=== PATIENT | female | born 1985 | race Caucasian/White ===

== ENCOUNTER → 2018-01-02 08:50 | Outpatient (POV) | payer MEDICAID, SELFPAY | PROVIDERS: PCP Physician Assistant; Visit Provider Specialist | DX: G56.02 Carpal tunnel syndrome, left upper limb (principal); R20.2 Paresthesia of skin | CPT/HCPCS: 95886; 95908 ==

== ENCOUNTER → 2018-04-06 13:08 | Outpatient (CLI) | payer MEDICAID, SELFPAY ==
--- NOTE | 2018-04-06 13:31 | US_ITS ---
US transvaginal HISTORY: Follow-up ovarian cyst ITS.REASON: check rt ovary ORDERING PHYSICIAN: Charity Vasques MD PATIENT AGE: 33 years Comparison: 02/20/2018 FINDINGS: The uterus measures 7 x 3 x 4 cm with a combined endometrial thickness of 7 mm. There is multilocular cystic involvement of the right ovary which is slightly more prominent when compared to the previous study measuring approximately 15 x 6 cm previously measured at 11 x 7 cm. There may be be some minimal mural nodularity along the inferior aspect of the lesion measuring approximately 2 cm. This however is questionable. There may be some nodularity along the superior pole of the cystic lesion is well. MRI of the pelvis without and with contrast may be of further value. The left ovary measures 3.5 x 2 x 2 cm containing multiple small follicles. No cul-de-sac fluid is evident. IMPRESSION: Large cystic right adnexal mass as described above which is slightly larger compared to the previous exam with some internal septations and questionable mural nodularity. Consider MRI for further evaluation. Neoplasm cannot be excluded.
[2018-04-06 15:09] LABS: Basophils % 0.4 % (0.1-2.0); Eosinophils # 0.2 K/mm3 (0.0-0.4); Eosinophils % 2.4 % (0.1-12.0); Hematocrit 47.6 % (37.0-47.0); Hemoglobin 15.1 g/dL (12.2-16.2); Lymphocytes # 2.6 K/mm3 (0.7-4.5); Lymphocytes % 36.8 K/mm3 (10-50); Mean Corpuscular HGB Conc 31.7 g/dL (31.8-35.4); Mean Corpuscular Hemoglobin 29.7 pg (27.0-31.2); Mean Corpuscular Volume 93.6 fl (81-99); Mean Platelet Volume 7.5 fl (7.4-10.4); Monocytes # 0.2 K/mm3 (0.1-1.0); Monocytes % 3.1 % (1.7-9.3); Neutrophils # 4.1 K/mm3 (1.8-7.8); Neutrophils % 57.3 % (37.0-80.0); Platelet Count 288 K/mm3 (142-424); Red Blood Count 5.08 M/mm3 (4.20-5.40); Red Cell Distribution Width 13.1 % (11.5-17.5); White Blood Count 7.1 K/mm3 (4.8-10.8)
[2018-04-06 16:24] LABS: Alanine Aminotransferase 33 U/L (12-78); Albumin/Globulin Ratio 0.9 (1.1-1.8); Alkaline Phosphatase 91 U/L (46-116); Anion Gap 11.3 mEq/L (5-15); Aspartate Amino Transferase 23 U/L (15-37); Bilirubin,Total 0.2 mg/dL (0.2-1.0); Blood Urea Nitrogen 10 mg/dL (7-18); Calcium 9.2 mg/dL (8.5-10.1); Carbon Dioxide 27 mmol/L (21.0-32.0); Chloride 103 mmol/L (98-107); Creatinine,Serum 0.97 mg/dL (0.55-1.02); Estimated Glomerular Filt Rate 66 ml/min (>60); GFR (African American) 80 ML/MIN (>60); Globulin 4.3 gm/dl (1.3-3.2); Glucose 88 mg/dL (74-106); HCG,Quantitative 0 mIU/mL; Potassium 4.3 mmoL/L (3.5-5.1); Sodium 137 mmol/L (136-145); T4 (Thyroxine) 8.3 ug/dl (4.7-13.3); Thyroid Stimulating Hormone 3.08 uIU/ml (0.358-3.740); Total Protein,Serum 8.3 gm/dL (6.4-8.2)
[2018-04-09 01:09] LABS: CEA 1.5 ng/mL (0.0-4.7); Cancer Antigen (CA) 125 17.9 U/mL (0.0-38.1); FSH 6.6 mIU/mL (.); LH 11.2 mIU/mL (.); Triiodothyronine (T3) Total 153 ng/dL (71-180)
== END ==
PROVIDERS: PCP Physician Assistant; Visit Provider Obstetrics & Gynecology
DX: R10.2 Pelvic and perineal pain (principal); N83.201 Unspecified ovarian cyst, right side
CPT/HCPCS: 36415; 76830; 80053; 82378; 83001; 83002; 84436; 84443; 84480; 84702; 85025; 86316

== ENCOUNTER → 2018-04-12 14:03 | Outpatient (CLI) | payer MEDICAID, SELFPAY ==
--- NOTE | 2018-04-12 14:13 | MR_ITS ---
MR pelvis wo/w con Ordering Physician: Charity Vsaques MD Patient Age: 33 years: Female HISTORY: ITS.REASON: abdominal/pelvic pain with right adnexal mass TECHNIQUE: Multiplanar multisequence precontrast imaging. Of the pelvis only. Images do extend above the iliac crest within the lowermost abdomen just below the kidneys. . Following ProHance 20 mL T1 fat suppression imaging all 3 planes performed. COMPARISON :CT abdomen pelvis 02/12/2018 Ultrasound pelvis studies from 02/12/2018 and 04/06/2018. FINDINGS We again see the large multilocular cystic mass arising from the right adnexa. It now has a more horizontal, transverse appearance and orientation than it did on previous CT. From ,, extending horizontal fashion to midline & then draping down towards the right adnexa Today's MR this multi locular cystic mass measures 14.6 cm transverse x 8 cm height x 6 cm AP.. [place] are fairly thin and smooth with only minimal enhancement-enhancement comparable to enhancement bowel wall and other structures. Does not appear unusual prominent nor pathologic. Again with smooth reno. No discrete mural nodules or prominent focal wall thickening. .. There are a few septations dividing major portions multilocular cystic feature.. Some of the vertical septations are perhaps very very slightly thickened for example towards the right aspect of this mass, but the septations remains fairly smooth. Again at reviewing all sequences I see no discrete enhancing mural nodules,. .. Fairly homogeneous fluid signal within it. Favor this is more likely a benign cystadenoma, but cannot exclude a adenocarcinoma totally. . Mucinous cystadenomas tend have loculation and thus it may indeed be homogeneous mucinous cystadenoma rather than serous .. There is no free fluid.. No pelvic adenopathy. The scan includes the lower abdomen just above the iliac crest. These images reveal no enhancing lesions elsewhere to suggest peritoneal disease. The uterus appears satisfactory with moderate endometrial stripe. Left ovary nicely imaged and identified. Appears normal. Normal size with scattered small follicles. Normal character. It measures up to 3.3 cm height 3.2 cm x 2.2 . cm No osseous lesions. There is a disc bulge with moderate central disc bulge at L4/5 that indents the thecal sac slightly narrowing the spinal canal. IMPRESSION------ 1. Large multilocular cystic mass arising from right adnexa. It measures up to 14.6 cm maximum length x 8 cm x 6 cm (It has rotated somewhat since January 2018 with now a more horizontal orientation than on On previous CT had a more oblique vertical orientation to the right adnexa.) Overall the reno fairly thin & smooth.. Several septations within this multiloculated cystic mass are noted & are perhaps very very slight thicker at the margins (relative to the reno), but overall the septations appears smooth and still relatively thin.. No mural nodule or mass evident. No abnormal focal areas of enhancement . Favor more likely Benign Cystadenoma with its overall appearance but by criteria there is some borderline features including the multilocular appearance and the scant enhancement of the wall. - Thus cannot exclude adenocarcinoma, but believe this less likely. 2. No pelvic adenopathy. No free fluid No peritoneal disease evident here at the pelvis and imaged lower most abdomen.. . Normal-appearing left ovary.. & Uterus unremarkable 3. Incidental moderate central disc bulge L4/5
== END ==
PROVIDERS: PCP Physician Assistant; Visit Provider Obstetrics & Gynecology
DX: N94.9 Unspecified condition associated with female genital organs and menstrual cycle (principal); R10.2 Pelvic and perineal pain; R10.9 Unspecified abdominal pain; D27.0 Benign neoplasm of right ovary
CPT/HCPCS: 72197; A9576

== ENCOUNTER → 2018-05-20 11:28 | Outpatient (CLI) | payer MEDICAID, SELFPAY ==
[2018-05-20 12:20] LABS: Basophils % 0.2 % (0.1-2.0); Eosinophils # 0.1 K/mm3 (0.0-0.4); Eosinophils % 0.9 % (0.1-12.0); Hematocrit 42.1 % (37.0-47.0); Lymphocytes # 1.8 K/mm3 (0.7-4.5); Lymphocytes % 25.4 K/mm3 (10-50); Mean Corpuscular HGB Conc 33.3 g/dL (31.8-35.4); Mean Corpuscular Hemoglobin 31.3 pg (27.0-31.2); Mean Platelet Volume 7.5 fl (7.4-10.4); Monocytes # 0.3 K/mm3 (0.1-1.0); Monocytes % 4.1 % (1.7-9.3); Neutrophils # 4.8 K/mm3 (1.8-7.8); Neutrophils % 69.3 % (37.0-80.0); Platelet Count 272 K/mm3 (142-424); Red Blood Count 4.48 M/mm3 (4.20-5.40); Red Cell Distribution Width 12.9 % (11.5-17.5); White Blood Count 6.9 K/mm3 (4.8-10.8)
[2018-05-20 12:42] LABS: Urine Pregnancy, HCG Qual. Negative (Negative)
== END ==
PROVIDERS: PCP Obstetrics & Gynecology; Visit Provider Obstetrics & Gynecology
DX: Z01.818 Encounter for other preprocedural examination (principal)
CPT/HCPCS: 36415; 81025; 85025; 86850

== ENCOUNTER → 2020-07-17 15:06 | Outpatient (CLI) | payer MEDICAID, SELFPAY ==
[2020-07-17 15:29] LABS: Basophils % 0.4 % (0.1-2.0); Eosinophils # 0.1 K/mm3 (0.0-0.4); Eosinophils % 1.5 % (0.1-12.0); Hematocrit 46.3 % (37.0-47.0); Lymphocytes % 32.2 % (10-50); Mean Corpuscular HGB Conc 32.4 g/dL (31.8-35.4); Mean Corpuscular Hemoglobin 31.3 pg (27.0-31.2); Mean Corpuscular Volume 96.6 fl (81-99); Mean Platelet Volume 8.8 fl (7.4-10.4); Monocytes # 0.3 K/mm3 (0.1-1.0); Monocytes % 5.7 % (1.7-9.3); Neutrophils # 3.7 K/mm3 (1.8-7.8); Neutrophils % 60.2 % (37.0-80.0); Platelet Count 269 K/mm3 (142-424); Red Blood Count 4.79 M/mm3 (4.20-5.40); Red Cell Distribution Width 13.4 % (11.5-17.5); White Blood Count 6.1 K/mm3 (4.8-10.8)
[2020-07-17 15:47] LABS: Alanine Aminotransferase 23 U/L (12-78); Albumin Level 4.4 g/dl (3.5-5.0); Albumin/Globulin Ratio 1.3 (1.1-1.8); Alkaline Phosphatase 105 U/L (38-126); Anion Gap 15.7 mEq/L (5-15); Aspartate Amino Transferase 33 U/L (14-36); Bilirubin,Total 0.4 mg/dl (0.2-1.3); Blood Urea Nitrogen 11 mg/dl (7-17); Calcium 9.5 mg/dl (8.4-10.2); Carbon Dioxide 26 mmol/L (22.0-30.0); Chloride 101 mmol/L (98-107); Chol/HDL Ratio 5.5 (1-3.5); Cholesterol 297 mg/dl (140-200); Estimated Glomerular Filt Rate 71 ml/min (>60); GFR (African American) 86 ML/MIN (>60); Globulin 3.5 g/dL (1.3-3.2); Glucose 95 mg/dl (74-100); HDL Cholesterol 54 mg/dl (40-60); Potassium 4.7 mmoL/L (3.5-5.1); Sodium 138 mmol/L (136-145); Total Protein,Serum 7.9 g/dl (6.3-8.2)
[2020-07-17 15:48] LABS: Triglycerides 469 mg/dl (30-150)
[2020-07-17 15:59] LABS: Direct LDL Cholesterol 172.63 mg/dL (100-129)
[2020-07-17 16:06] LABS: T4 (Thyroxine) 8.5 ug/dl (5.53-11.0)
[2020-07-17 16:19] LABS: Thyroid Stimulating Hormone 4.38 uIU/mL (0.465-4.68)
[2020-07-25 10:28] LABS: 1,25 Dihydroxy Vitamin D 22 pg/mL (.); 1,25-Dihydroxy, Vitamin D-2 <10 pg/mL (.); 1,25-Dihydroxy, Vitamin D-3 19 pg/mL (.)
== END ==
PROVIDERS: Visit Provider Physician Assistant
DX: R10.9 Unspecified abdominal pain (principal); N83.209 Unspecified ovarian cyst, unspecified side; E78.5 Hyperlipidemia, unspecified; E55.9 Vitamin D deficiency, unspecified
CPT/HCPCS: 80053; 80061; 82652; 84436; 84443; 85025

== ENCOUNTER → 2021-02-19 17:32 | Outpatient (CLI) | payer MEDICAID, SELFPAY ==
[2021-02-19 17:50] LABS: Basophils % 0.3 % (0.1-2.0); Eosinophils # 0.1 K/mm3 (0.0-0.4); Eosinophils % 0.8 % (0.1-12.0); Hematocrit 39.5 % (37.0-47.0); Hemoglobin 13.5 g/dL (12.2-16.2); Lymphocytes # 2.7 K/mm3 (0.7-4.5); Mean Corpuscular HGB Conc 34.2 g/dL (31.8-35.4); Mean Corpuscular Hemoglobin 31.8 pg (27.0-31.2); Mean Corpuscular Volume 92.8 fl (81-99); Mean Platelet Volume 8.4 fl (7.4-10.4); Monocytes # 0.4 K/mm3 (0.1-1.0); Monocytes % 4.7 % (1.7-9.3); Neutrophils # 5.6 K/mm3 (1.8-7.8); Neutrophils % 63.1 % (37.0-80.0); Platelet Count 275 K/mm3 (142-424); Red Blood Count 4.26 M/mm3 (4.20-5.40); Red Cell Distribution Width 13.3 % (11.5-17.5); White Blood Count 8.8 K/mm3 (4.8-10.8)
[2021-02-19 17:56] LABS: Alanine Aminotransferase 20 U/L (12-78); Albumin Level 4.5 g/dl (3.5-5.0); Albumin/Globulin Ratio 1.5 (1.1-1.8); Alkaline Phosphatase 82 U/L (38-126); Aspartate Amino Transferase 26 U/L (14-36); Bilirubin,Total 0.5 mg/dl (0.2-1.3); Blood Urea Nitrogen 9 mg/dl (7-17); Carbon Dioxide 23 mmol/L (22.0-30.0); Chloride 107 mmol/L (98-107); Chol/HDL Ratio 6.2 (1-3.5); Cholesterol 246 mg/dl (140-200); Estimated Glomerular Filt Rate 62 ml/min (>60); GFR (African American) 75 ML/MIN (>60); Globulin 3.1 g/dL (1.3-3.2); Glucose 90 mg/dl (74-100); HDL Cholesterol 40 mg/dl (40-60); Sodium 137 mmol/L (136-145); Total Protein,Serum 7.6 g/dl (6.3-8.2); Triglycerides 325 mg/dl (30-150); VLDL Cholesterol 65 mg/dL (0-40)
[2021-02-19 18:13] LABS: T4 (Thyroxine) 10.2 ug/dl (5.53-11.0)
[2021-02-19 18:45] LABS: Vitamin B12 284 pg/mL (239-931)
[2021-02-21 13:09] LABS: FSH 4.1 mIU/mL (.); LH 6.3 mIU/mL (.)
[2021-03-02 03:43] LABS: Estrogen 198 pg/mL (.)
== END ==
PROVIDERS: Visit Provider Physician Assistant
DX: F32.9 Major depressive disorder, single episode, unspecified (principal); L65.9 Nonscarring hair loss, unspecified; E55.9 Vitamin D deficiency, unspecified; Z79.899 Other long term (current) drug therapy
CPT/HCPCS: 80053; 80061; 82306; 82607; 82672; 83001; 83002; 84144; 84436; 84443; 85025

== ENCOUNTER → 2021-06-16 18:51 | Outpatient (CLI) | payer MEDICAID, SELFPAY ==
[2021-06-16 19:07] LABS: Basophils % 0.5 % (0.1-2.0); Eosinophils # 0.1 K/mm3 (0.0-0.4); Eosinophils % 1.7 % (0.1-12.0); Hematocrit 41.9 % (37.0-47.0); Hemoglobin 13.8 g/dL (12.2-16.2); Lymphocytes # 2.3 K/mm3 (0.7-4.5); Lymphocytes % 30.4 % (10-50); Mean Corpuscular HGB Conc 32.9 g/dL (31.8-35.4); Mean Corpuscular Hemoglobin 32.5 pg (27.0-31.2); Mean Corpuscular Volume 98.7 fl (81-99); Mean Platelet Volume 9.8 fl (7.4-10.4); Monocytes # 0.8 K/mm3 (0.1-1.0); Monocytes % 10.6 % (1.7-9.3); Neutrophils # 4.2 K/mm3 (1.8-7.8); Neutrophils % 56.8 % (37.0-80.0); Platelet Count 278 K/mm3 (142-424); Red Blood Count 4.24 M/mm3 (4.20-5.40); Red Cell Distribution Width 13.8 % (11.5-17.5); White Blood Count 7.4 K/mm3 (4.8-10.8)
[2021-06-16 19:50] LABS: Alanine Aminotransferase 21 U/L (12-78); Albumin/Globulin Ratio 1.2 (1.1-1.8); Alkaline Phosphatase 96 U/L (38-126); Anion Gap 14.2 mEq/L (5-15); Aspartate Amino Transferase 28 U/L (14-36); Bilirubin,Total 0.4 mg/dl (0.2-1.3); Blood Urea Nitrogen 10 mg/dl (7-17); Calcium 8.9 mg/dl (8.4-10.2); Carbon Dioxide 27 mmol/L (22.0-30.0); Chloride 104 mmol/L (98-107); Chol/HDL Ratio 6.1 (1-3.5); Cholesterol 258 mg/dl (140-200); Estimated Glomerular Filt Rate 70 ml/min (>60); GFR (African American) 85 ML/MIN (>60); Globulin 3.3 g/dL (1.3-3.2); Glucose 89 mg/dl (74-100); HDL Cholesterol 42 mg/dl (40-60); Potassium 5.2 mmoL/L (3.5-5.1); Sodium 140 mmol/L (136-145); Total Protein,Serum 7.3 g/dl (6.3-8.2)
[2021-06-16 19:52] LABS: Triglycerides 484 mg/dl (30-150)
[2021-06-16 20:01] LABS: Direct LDL Cholesterol 125.42 mg/dL (100-129)
[2021-06-16 20:07] LABS: 25-OH Vitamin D, Total 32.6 ng/mL (30-100); Free T4 (Free Thyroxine) 0.81 ng/dl (0.78-2.19)
[2021-06-16 20:19] LABS: Thyroid Stimulating Hormone 1.54 uIU/mL (0.465-4.68)
== END ==
PROVIDERS: Visit Provider Physician Assistant
DX: E78.5 Hyperlipidemia, unspecified (principal)
CPT/HCPCS: 80053; 80061; 82306; 84439; 84443; 85025

== ENCOUNTER → 2021-07-14 12:29 | Outpatient (CLI) | payer MEDICAID, SELFPAY ==
--- NOTE | 2021-07-14 12:39 | XR_ITS ---
PROCEDURE: XR WRIST LT MIN 3V CLINICAL INDICATION: LT carpal tunnel syndrome COMPARISON: CR WRL3 WRIST-3 VIEWS-LT from 11/25/2014 FINDINGS: No fracture or dislocation. No lytic or blastic change. There is normal mineralization. The joint spaces are well-preserved. No significant degenerative/arthritic changes. No erosive changes evident. Other findings:There is flattening the lateral aspect of the distal radius. This is a chronic finding and of questionable clinical significance. IMPRESSION: No acute findings. Dictated by: Gautam Reynoso MD 07/15/2021 08:12 Gautam Reynoso MD in OV 07/15/2021 08:12
== END ==
PROVIDERS: PCP Physician Assistant; Visit Provider Orthopaedic Surgery
DX: G56.02 Carpal tunnel syndrome, left upper limb (principal)
CPT/HCPCS: 73110

== ENCOUNTER → 2021-11-16 10:16 | Outpatient (CLI) | payer MEDICAID, SELFPAY ==
[2021-11-16 10:55] LABS: Basophils % 0.3 % (0.1-2.0); Eosinophils # 0.1 K/mm3 (0.0-0.4); Eosinophils % 1.4 % (0.1-12.0); Hematocrit 39.6 % (37.0-47.0); Hemoglobin 13.3 g/dL (12.2-16.2); Lymphocytes # 1.7 K/mm3 (0.7-4.5); Lymphocytes % 28.3 % (10-50); Mean Corpuscular HGB Conc 33.5 g/dL (31.8-35.4); Mean Corpuscular Hemoglobin 31.3 pg (27.0-31.2); Mean Corpuscular Volume 93.3 fl (81-99); Mean Platelet Volume 8.7 fl (7.4-10.4); Monocytes # 0.3 K/mm3 (0.1-1.0); Monocytes % 5.1 % (1.7-9.3); Platelet Count 253 K/mm3 (142-424); Red Blood Count 4.25 M/mm3 (4.20-5.40); Red Cell Distribution Width 13.7 % (11.5-17.5); White Blood Count 6.2 K/mm3 (4.8-10.8)
[2021-11-16 12:07] LABS: Anion Gap 14.7 mEq/L (5-15); Blood Urea Nitrogen 12 mg/dl (7-17); Calcium 8.4 mg/dl (8.4-10.2); Carbon Dioxide 22 mmol/L (22.0-30.0); Chloride 105 mmol/L (98-107); Estimated Glomerular Filt Rate 94 ml/min (>60); GFR (African American) 114 ML/MIN (>60); Glucose 99 mg/dl (74-100); Potassium 4.7 mmoL/L (3.5-5.1); Sodium 137 mmol/L (136-145)
== END ==
PROVIDERS: Visit Provider Orthopaedic Surgery
DX: Z01.812 Encounter for preprocedural laboratory examination (principal); Z11.52 Encounter for screening for COVID-19; G56.02 Carpal tunnel syndrome, left upper limb
CPT/HCPCS: 36415; 80048; 85025; C9803; U0003; U0005

== ENCOUNTER 2021-11-19 09:54 | Day surgery (SDC) | payer MEDICAID, SELFPAY ==
[2021-11-16 09:49] VITALS: BMI 37.8
[2021-11-18 14:16] LABS: HCG Qualitative, Serum Negative (Negative)
[2021-11-19 10:10] VITALS: BP 121/51; PULSE 80; RESP 18; TEMP 36.3; O2SAT 100
[2021-11-19 10:11] LABS: Urine Pregnancy, HCG Qual. Negative (Negative)
--- NOTE | 2021-11-19 11:00 | P.PN_ITS ---
[facility] Anesthesia Checklist - Patient Identification Patient Identification: Arm Band, Verbal (Name & ) - Structural Data Admitted From: Home Planned Operative Procedure/s: Carpal Tunnel Repair Verified Documents: Surgical Consent - Chart Verification Results Verified: CBC, BMP - Additional verifications Anesthesia Reactions: No Hx Blood Transfusions: No Blood Transfusion Reaction: No - Airway Assessment C-Spine Mobility Assessed: Yes TMJ Mobility Assessed: Yes Dentition: Poor Dentition - Neurological Assessment Level of Consciousness: Awake, Alert, Appropriate - Anesthesia Plan Anesthesia Type: MAC [facility] History Medical History: Reports:: Anxiety, Depression, Hyperlipidemia Denies:: Cancer, Diabetes Mellitus Type 1, Diabetes Mellitus Type 2, Internal Pacemaker, MRSA, Seizures *Have you ever received a pneumonia vaccine?: No *Have you received a flu vaccine this season?: No Other Medical History: Denies: Blood Transfusion Reaction Anesthesia experience/problems:: none Other Surgeries: Yes: Cholecystectomy, Tubal Ligation, Other. No: Pacemaker Amputation: No Fractures: No - *Social History Last grade of school completed: High school graduate Smoking Status: Current every day smoker Tobacco Type: cigarettes # Packs/Day (cigarettes): 1 Alcohol Intake: never Substance Use Type: denies use *Occupational Status:: disabled Housing: house Household Members: family *Travel in the last 8 weeks: None - Psychiatric History Pschychiatric History:: Reports:: Anxiety, Depression Family Hx:: Cancer, Hypertension, Hyperlipidemia, Heart Attack, Diabetes, Anemia
[2021-11-19 15:55] VITALS: BP 133/58; PULSE 78; RESP 18; TEMP 36.3; O2SAT 94
[2021-11-19 16:05] VITALS: BP 148/79; PULSE 75; RESP 18; TEMP 36.3; O2SAT 94
[2021-11-19 16:15] VITALS: BP 154/75; PULSE 75; RESP 18; TEMP 36.3; O2SAT 95
[2021-11-19 16:25] VITALS: BP 142/94; PULSE 63; RESP 18; O2SAT 95
--- NOTE | 2021-11-20 17:20 | HMH.OPNOTE ---
Date of procedure: 11/20/21 Pre-op Diagnosis:: Carpal tunnel syndrome, left wrist Post-op Diagnosis:: Same Procedure performed:: Open carpal tunnel release, left wrist Surgeon:: Dustin Barrientos MD Package Delivery Room Service Runner(s):: Keerthi Culver PA-C [employer]:: Abhay Montaño Anesthesia: MAC Estimated blood loss (mL): 2 Clinical Note:: Patient is a 36-year-old female with left carpal tunnel syndrome with long-standing symptoms. EMG/NCV results confirmed moderate carpal tunnel syndrome on the left side. Patient failed to respond adequately to conservative management. Therefore, the carpal tunnel release surgery was necessary to relieve symptoms, preserve the remaining fibers of the median nerve, improve function and decrease the pain, paresthesias and weakness and to prevent permanent nerve damage. Please refer to orthopedic office note for full details. Operative findings:: The intraoperative findings showed the median nerve to be very tightly compressed and hyperemic. The flexor retinaculum was noted to be thick and tight. There was mild synovitis in the carpal tunnel. There was no evidence of any space-occupying lesions within the carpal tunnel. Operative note:: On the day of the surgery the patient was met in the preoperative area. Patient was positively identified and the operative site was marked and initialed by me. A physical examination was performed and the chart was updated. I again discussed the procedure, risks and benefits and alternatives with the patient. The complications discussed include but are not limited to- bleeding, injury to nerves, blood vessels and tendons, infection, wound dehiscence, incomplete relief/continued pain, persistent numbness, palmar hypersensitivity, pillar pain, DVT/PE, complex regional pain syndrome(CRPS), worsening of nerve damage, failure of the condition to improve, incomplete return of function, bowstringing of tendons, weakness of display director strength, recurrence, failure of the surgery to accomplish the desired goals, decreased use of the hand, loss of use of the arm, loss of the hand or arm, loss of life. Likely need for further surgery in the future has been discussed. I've indicated to the patient where the proposed incision would be made and also discussed the possibility of extending the incision if needed to accomplish an effective release. We have discussed how the goal of surgery is to protect the fibers which have remained healthy and hopefully reverse the symptoms of the fibers which are compromised but still recoverable. We have explained that, fibers that are permanently damaged will not recover. We have also discussed the anesthetic options which include local, regional and general. Patient expressed a preference for a regional Vashti's block. Patient asked appropriate questions and all have been answered by me. Patient understood the risks, agreed to proceed with surgery, signed the consent form and no guarantees or assurances were given or implied. The patient was brought to the operating room and placed supine on the operating table. The left upper extremity was placed over a side table. All the bony prominences were well-padded. The patient had a MAC anesthesia administered by the appointment coordinator. The left upper extremity was prepped and draped in the usual sterile fashion. A preprocedure timeout was performed as per hospital policy. The skin incision was marked using the Mann's landmarks, just ulnar to the thenar crease. The limb was exsanguinated with the Esmarch bandage and tourniquet was inflated to 250 mmHg. Please see nursing records for the total tourniquet time. Mann's landmarks were utilized and a skin incision was made parallel and just ulnar to the thenar crease with a 15 blade. Blunt tissue dissection was carried through the subcutaneous tissue down to the palmar fascia. The palmar fascia was incised with the knife to reveal the transverse carpal ligament. The transverse carpal ligament was adequately exposed an
== END 2021-11-19 16:30 | disposition home or self-care (01) ==
LOC: OR 09:54
PROVIDERS: PCP Physician Assistant; Visit Provider Orthopaedic Surgery
PROC: (CPT 64721; principal; 2021-11-19 11:30)
DX: G56.02 Carpal tunnel syndrome, left upper limb (principal)
CPT/HCPCS: 64721; 81025; 84703

== ENCOUNTER 2023-12-27 20:54 | Outpatient (CLI) | payer MEDICAID, SELFPAY ==
[2023-12-27 18:11] LABS: Basophils % 0.4 % (0.1-2.0); Eosinophils # 0.1 K/mm3 (0.0-0.4); Eosinophils % 1.3 % (0.1-12.0); Hemoglobin 13.4 g/dL (12.2-16.2); Lymphocytes # 2.2 K/mm3 (0.7-4.5); Lymphocytes % 30.2 % (10-50); Mean Corpuscular HGB Conc 32.7 g/dL (31.8-35.4); Mean Corpuscular Volume 97.8 fl (81-99); Mean Platelet Volume 9.3 fl (7.4-10.4); Monocytes # 0.5 K/mm3 (0.1-1.0); Monocytes % 7.6 % (1.7-9.3); Neutrophils # 4.3 K/mm3 (1.8-7.8); Neutrophils % 60.5 % (37.0-80.0); Platelet Count 233 K/mm3 (142-424); Red Blood Count 4.19 M/mm3 (4.20-5.40); Red Cell Distribution Width 14.4 % (11.5-17.5); White Blood Count 7.1 K/mm3 (4.8-10.8)
[2023-12-27 18:57] LABS: Alanine Aminotransferase 154 U/L (12-78); Albumin Level 4.2 g/dl (3.5-5.0); Albumin/Globulin Ratio 1.4 (1.1-1.8); Alkaline Phosphatase 115 U/L (38-126); Anion Gap 10.4 mEq/L (5-15); Aspartate Amino Transferase 118 U/L (14-36); Bilirubin,Total 0.5 mg/dl (0.2-1.3); Blood Urea Nitrogen 7 mg/dl (7-17); Calcium 9.4 mg/dl (8.4-10.2); Carbon Dioxide 28 mmol/L (22.0-30.0); Chloride 105 mmol/L (98-107); Chol/HDL Ratio 5.1 (1-3.5); Cholesterol 164 mg/dl (140-200); Estimated Glomerular Filt Rate 80 ml/min (>60); GFR (African American) 97 ML/MIN (>60); Globulin 3.1 g/dL (1.3-3.2); Glucose 86 mg/dl (74-100); HDL Cholesterol 32 mg/dl (40-60); Potassium 4.4 mmoL/L (3.5-5.1); Sodium 139 mmol/L (136-145); Total Protein,Serum 7.3 g/dl (6.3-8.2); Triglycerides 232 mg/dl (30-150); VLDL Cholesterol 46 mg/dL (0-40)
[2023-12-27 19:08] LABS: Direct LDL Cholesterol 84.35 mg/dL (100-129)
[2023-12-27 19:12] LABS: 25-OH Vitamin D, Total 25.8 ng/mL (30-100)
[2023-12-27 19:31] LABS: Thyroid Stimulating Hormone 1.08 uIU/mL (0.465-4.68)
[2023-12-27 19:52] LABS: Vitamin B12 562 pg/mL (239-931)
[2023-12-30 13:34] LABS: HBsAg Screen Negative (Negative); HCV Ab Non Reactive (Non Reactive); Hep A Ab, IGM Negative (Negative); Hep B Core Ab, IgM Negative (Negative)
== END 2023-12-27 23:59 ==
LOC: LAB.DROPOF 20:54
PROVIDERS: PCP Physician Assistant; Visit Provider Physician Assistant
DX: E78.5 Hyperlipidemia, unspecified (principal); R74.8 Abnormal levels of other serum enzymes; R51.9 Headache, unspecified; Z79.899 Other long term (current) drug therapy
CPT/HCPCS: 80053; 80061; 80074; 82306; 82607; 84443; 85025

== ENCOUNTER 2024-01-04 08:25 | Outpatient (CLI) | payer MEDICAID, SELFPAY ==
--- NOTE | 2024-01-04 08:28 | US_ITS ---
FINAL REPORT CLINICAL HISTORY: elevated liver enzymes FINDINGS: RIGHT UPPER QUADRANT ULTRASOUND Sonographic images of the right upper quadrant were obtained. The pancreas is partially obscured. There is fatty infiltration of the liver. The gallbladder is surgically absent. The common duct measures 4 mm. Limited images of the right kidney are normal. IMPRESSION: Fatty liver. Reviewed, Interpreted and Dictated by Juancho Jenkins III, MD Transcribed by Lauren Reyes Authenticated and [facility]
== END 2024-01-04 23:59 | disposition home or self-care (01) ==
LOC: RAD 08:26
PROVIDERS: PCP Physician Assistant; Visit Provider Physician Assistant
DX: R74.8 Abnormal levels of other serum enzymes (principal)
CPT/HCPCS: 76705

== ENCOUNTER 2024-01-12 17:49 | Emergency (ER) | payer OTHER, SELFPAY ==
[2024-01-12 17:51] VITALS: BP 137/73; PULSE 76; RESP 16; TEMP 36.6; O2SAT 96; BMI 37.4
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
[2024-01-12] MEDS: IBUPROFEN 400 MG TABLET 800 MG PO (18:29)
[2024-01-12] MEDS: CYCLOBENZAPRINE 10MG TABLET 10 MG PO (18:29)
[2024-01-12 18:30] VITALS: BP 123/66; PULSE 71; O2SAT 95
[2024-01-12 18:39] VITALS: BP 123/66; PULSE 71; RESP 18; TEMP 36.6; O2SAT 95
== END 2024-01-12 18:40 | disposition home or self-care (01) ==
LOC: ER 18:39
PROVIDERS: Emergency Provider Student in an Organized Health Care Education/Training Program; PCP Physician Assistant
DX: S39.012A Strain of muscle, fascia and tendon of lower back, initial encounter (principal); R51.9 Headache, unspecified; V49.50XA Passenger injured in collision with unspecified motor vehicles in traffic accident, initial encounter; Y92.410 Unspecified street and highway as the place of occurrence of the external cause
CPT/HCPCS: 99283

== ENCOUNTER 2024-04-04 10:04 | Outpatient (CLI) | payer MEDICAID, SELFPAY ==
--- NOTE | 2024-04-04 10:04 | MM_ITS ---
PROCEDURE INFORMATION: Exam: Bilateral Screening 3D Mammography Exam date and time: 04/04/2024 9:51 AM Age: 39 years old Clinical indication: Screening examination TECHNIQUE: Imaging protocol: Bilateral Screening tomosynthesis and 2D mammography including computer-aided detection (CAD) when performed. COMPARISON: No relevant prior studies available. Baseline FINDINGS: MAMMOGRAPHY: Breast composition: The breasts are heterogeneously dense, which may obscure small masses. Mass: None. Architectural distortion: None. Calcifications: No suspicious calcifications. Asymmetric density: None. Skin thickening: None. Axillary adenopathy: None. IMPRESSION: No mammographic evidence of malignancy. Annual screening is recommended unless otherwise clinically indicated. ASSESSMENT: BI-RADS Category 1: Negative
== END 2024-04-04 23:59 | disposition home or self-care (01) ==
LOC: RAD 10:04
PROVIDERS: PCP Physician Assistant; Visit Provider Obstetrics & Gynecology
DX: Z12.31 Encounter for screening mammogram for malignant neoplasm of breast (principal)
CPT/HCPCS: 77063; 77067

== ENCOUNTER 2024-08-06 10:46 | Outpatient (CLI) | payer MEDICAID, SELFPAY ==
[2024-08-06 18:25] LABS: Alanine Aminotransferase 65 U/L (12-78); Alkaline Phosphatase 103 U/L (38-126); Aspartate Amino Transferase 64 U/L (14-36); Bilirubin,Direct 0.4 mg/dl (0.0-0.4); Bilirubin,Indirect 0.1 mg/dL (0.0-0.9); Bilirubin,Total 0.5 mg/dl (0.2-1.3); Bilirubin,Unconjugated 0.2 mg/dL (0.0-1.1); Total Protein,Serum 7.4 g/dl (6.3-8.2)
[2024-08-06 18:29] LABS: HIV (1&2) Antibody Rapid NONREACTIVE (NONREACTIVE)
[2024-08-06 18:33] LABS: Free Thyroxine Index 2.6 ug/dL (5.93-13.13); Triiodothryronine (T3) Uptake 26 % (23.5-40.5)
[2024-08-07 09:22] LABS: HCV Ab Non Reactive (Non Reactive)
== END 2024-08-06 23:59 | disposition home or self-care (01) ==
LOC: LAB.DROPOF 08-07 10:02
PROVIDERS: PCP Family Medicine; Visit Provider Family Medicine
DX: F32.1 Major depressive disorder, single episode, moderate (principal); Z11.9 Encounter for screening for infectious and parasitic diseases, unspecified; R79.89 Other specified abnormal findings of blood chemistry
CPT/HCPCS: 80076; 84436; 84443; 84479; 86803; 87389

== ENCOUNTER 2024-12-20 09:40 | Outpatient (CLI) | payer MEDICAID, SELFPAY ==
--- NOTE | 2024-12-20 10:07 | XR_ITS ---
FINAL REPORT CLINICAL HISTORY: MEDIAL KNEE PAIN, 1 MONTH. NKI FINDINGS: AP, lateral and oblique views of the right knee were obtained. There is no prior exam for comparison. There is no acute osseous abnormality of the right knee. There is mild degenerative joint disease. The soft tissues are normal. There is no joint effusion. IMPRESSION: Degenerative changes with no acute osseous abnormality of the right knee. Reviewed, Interpreted and Dictated by Yue Tello MD Transcribed by Ingrid Rajput Authenticated and . [facility]
[2024-12-20 10:35] LABS: Basophils % 0.3 % (0.1-2.0); Eosinophils # 0.1 K/mm3 (0.0-0.4); Eosinophils % 1.4 % (0.1-12.0); Hemoglobin 12.9 g/dL (12.2-16.2); Lymphocytes # 1.9 K/mm3 (0.7-4.5); Lymphocytes % 30.3 % (10-50); Mean Corpuscular HGB Conc 33.1 g/dL (31.8-35.4); Mean Corpuscular Hemoglobin 30.2 pg (27.0-31.2); Mean Corpuscular Volume 91.3 fl (81-99); Mean Platelet Volume 10.4 fl (7.4-10.4); Monocytes # 0.5 K/mm3 (0.1-1.0); Monocytes % 7.4 % (1.7-9.3); Neutrophils # 3.9 K/mm3 (1.8-7.8); Neutrophils % 60.4 % (37.0-80.0); Platelet Count 229 K/mm3 (142-424); Red Blood Count 4.27 M/mm3 (4.20-5.40); Red Cell Distribution Width 13.3 % (11.5-17.5); White Blood Count 6.4 K/mm3 (4.8-10.8)
[2024-12-20 11:00] LABS: Albumin Level 4.3 g/dl (3.5-5.0); Chloride 103 mmol/L (98-107); Potassium 4.3 mmoL/L (3.5-5.1); Sodium 138 mmol/L (136-145)
[2024-12-20 11:03] LABS: Alanine Aminotransferase 39 U/L (12-78); Albumin/Globulin Ratio 1.2 (1.1-1.8); Alkaline Phosphatase 117 U/L (38-126); Anion Gap 13.3 mEq/L (5-15); Aspartate Amino Transferase 50 U/L (14-36); Bilirubin,Direct 0.1 mg/dl (0.0-0.4); Bilirubin,Indirect 0.3 mg/dL (0.0-0.9); Bilirubin,Total 0.4 mg/dl (0.2-1.3); Bilirubin,Unconjugated 0.3 mg/dL (0.0-1.1); Blood Urea Nitrogen 9 mg/dl (7-17); Carbon Dioxide 26 mmol/L (22.0-30.0); Estimated Glomerular Filt Rate 79 ml/min (>60); GFR (African American) 96 ML/MIN (>60); Globulin 3.6 g/dL (1.3-3.2); Glucose 98 mg/dl (74-100); Total Protein,Serum 7.9 g/dl (6.3-8.2)
[2024-12-20 11:25] LABS: 25-OH Vitamin D, Total 35.4 ng/mL (30-100)
[2024-12-20 11:35] LABS: Thyroid Stimulating Hormone 1.75 uIU/mL (0.465-4.68)
[2024-12-20 12:08] LABS: Vitamin B12 413 pg/mL (239-931)
[2024-12-20 12:18] LABS: Hemoglobin A1C 5.9 % (4.0-6.0)
== END 2024-12-20 23:59 | disposition home or self-care (01) ==
LOC: RAD 09:41
PROVIDERS: PCP Family Medicine; Visit Provider Family Medicine
DX: M25.561 Pain in right knee (principal); E53.8 Deficiency of other specified B group vitamins; E55.9 Vitamin D deficiency, unspecified; R79.89 Other specified abnormal findings of blood chemistry
CPT/HCPCS: 36415; 73562; 80053; 80076; 82306; 82607; 83036; 84443; 85025

== ENCOUNTER 2025-01-16 08:34 | Outpatient (CLI) | payer MEDICAID, SELFPAY ==
--- NOTE | 2025-01-16 09:00 | CT_ITS ---
FINAL REPORT TECHNIQUE: Axial imaging of the chest is obtained after the administration of contrast. 3-D MIP reformatted images were also obtained and reviewed per PE protocol. CLINICAL HISTORY: Possible subclavian steal COMPARISON: None FINDINGS: No aortic aneurysm or dissection. The great vessels are patent. No subclavian stenosis seen. Included portions of the vertebral arteries are patent. Heart size is normal. There is no mediastinal, hilar, or axillary lymphadenopathy. Small hypodense right thyroid nodule. Patchy subpleural right lower lobe groundglass opacity could be infectious or inflammatory. Lungs are otherwise clear. There is no pleural or pericardial effusion. Limited evaluation of the upper abdomen is without acute abnormality. No acute osseous abnormality. IMPRESSION: No CT evidence of subclavian steal. No aortic aneurysm or dissection. Patchy subpleural groundglass opacities right lower lobe favored to be infectious or inflammatory. Reviewed, Interpreted and Dictated by Yue Tello MD Transcribed by Rhea Jain Authenticated and [facility]
[2025-01-16] MEDS: 0.9 % SODIUM CHLORIDE 50 ML VIAL IV (09:28)
[2025-01-16] MEDS: SODIUM CHLORIDE 0.9% 10ML SYR (RAD ONLY) 10 ML IV (09:28)
[2025-01-16] MEDS: IOPAMIDOL-370 (76%);100ML BOTTLE 100 ML IV (09:29)
== END 2025-01-16 23:59 | disposition home or self-care (01) ==
LOC: RAD 08:35
PROVIDERS: PCP Family Medicine; Visit Provider Family Medicine
DX: I77.1 Stricture of artery (principal)
CPT/HCPCS: 71275; Q9967

== ENCOUNTER 2025-09-11 11:18 | Outpatient (CLI) | payer MEDICAID, SELFPAY ==
[2025-09-11 14:52] LABS: Hematocrit 41.2 % (37.0-47.0); Hemoglobin 13.3 g/dL (12.2-16.2); Immature Granulocytes % 0.2 %; Mean Corpuscular HGB Conc 32.3 g/dL (31.8-35.4); Mean Corpuscular Hemoglobin 29.7 pg (27.0-31.2); Mean Corpuscular Volume 92.0 fl (81-99); Nucleated Red Blood Cells % 0 %; Platelet Count 208 K/mm3 (142-424); Red Blood Count 4.48 M/mm3 (4.20-5.40); Red Cell Distribution Width-SD 46.4 fL; White Blood Count 6.5 K/mm3 (4.8-10.8)
[2025-09-11 15:02] LABS: Alanine Aminotransferase 61 U/L (12-78); Albumin Level 4.5 g/dl (3.5-5.0); Albumin/Globulin Ratio 1.0 (1.1-1.8); Alkaline Phosphatase 113 U/L (38-126); Anion Gap 12.3 mEq/L (5-15); Aspartate Amino Transferase 69 U/L (14-36); Bilirubin,Total 0.5 mg/dl (0.2-1.3); Blood Urea Nitrogen 12 mg/dl (7-17); Calcium 9.8 mg/dl (8.4-10.2); Carbon Dioxide 27 mmol/L (22.0-30.0); Chloride 103 mmol/L (98-107); Cholesterol 182 mg/dl (140-200); Creatinine,Serum 0.90 mg/dl (0.52-1.04); Estimated Glomerular Filt Rate 69 ml/min (>60); GFR (African American) 83 ML/MIN (>60); Globulin 4.3 g/dL (1.3-3.2); Glucose 96 mg/dl (74-100); HDL Cholesterol 58 mg/dl (40-60); Potassium 4.3 mmoL/L (3.5-5.1); Sodium 138 mmol/L (136-145); Total Protein,Serum 8.8 g/dl (6.3-8.2); Triglycerides 218 mg/dl (30-150)
[2025-09-11 15:19] LABS: 25-OH Vitamin D, Total 24.9 ng/mL (30-100)
[2025-09-11 15:51] LABS: Vitamin B12 661 pg/mL (239-931)
== END 2025-09-11 23:59 | disposition home or self-care (01) ==
LOC: LAB.DROPOF 20:10
PROVIDERS: PCP Nurse Practitioner Family; Visit Provider Family Medicine
DX: E55.9 Vitamin D deficiency, unspecified (principal); R73.03 Prediabetes; R74.8 Abnormal levels of other serum enzymes
CPT/HCPCS: 80053; 80061; 82306; 82607; 85025

== ENCOUNTER 2025-09-17 08:48 | Outpatient (CLI) | payer MEDICAID, SELFPAY ==
--- NOTE | 2025-09-17 08:53 | XR_ITS ---
FINAL REPORT TECHNIQUE: 2 view chest CLINICAL HISTORY: abn chest xray COMPARISON: None FINDINGS: No acute pulmonary density is evident. There is no evidence of effusion or other pleural disease. The mediastinum has a normal appearance. The cardiac silhouette is unremarkable. IMPRESSION: Unremarkable chest exam. Reviewed, Interpreted and Dictated by Lalit Kruse MD Transcribed by Lizabeth Fuller Authenticated and [facility]
--- NOTE | 2025-09-17 08:53 | XR_ITS ---
FINAL REPORT CLINICAL HISTORY: knee pain x 3month FINDINGS: RIGHT KNEE: 3 images of the right knee were obtained. There is no evidence of fracture or dislocation. Moderate compartment degenerative changes present. There is no soft tissue abnormality identified. IMPRESSION: Degenerative changes, with no acute bony abnormality. Reviewed, Interpreted and Dictated by Lalit Kruse MD Transcribed by Lizabeth Fuller Authenticated and [facility]
--- NOTE | 2025-09-17 08:53 | XR_ITS ---
FINAL REPORT CLINICAL HISTORY: knee pain [id number] COMPARISON: None FINDINGS: LEFT KNEE: 3 images of the left knee were obtained. There is no evidence of fracture or dislocation. There is moderate tricompartment degenerative change present. No joint effusion is present. There is no soft tissue abnormality identified. IMPRESSION: Degenerative change, with no acute bony abnormality. Reviewed, Interpreted and Dictated by Lalit Kruse MD Transcribed by Lizabeth Fuller Authenticated and [facility]
== END 2025-09-17 23:59 | disposition home or self-care (01) ==
LOC: RAD 08:49
PROVIDERS: PCP Family Medicine; Visit Provider Family Medicine
DX: R06.02 Shortness of breath (principal); Z87.891 Personal history of nicotine dependence; M17.0 Bilateral primary osteoarthritis of knee
CPT/HCPCS: 71046; 73560